=== PATIENT | male | born 1975 | race Caucasian/White ===

== ENCOUNTER 2021-01-11 02:50 | Day surgery (SDC) | payer OTHER, SELFPAY ==
[2021-01-02 13:53] VITALS: BMI 23.8
[2021-01-11 11:46] VITALS: BP 130/60; PULSE 62; RESP 18; TEMP 36.4; O2SAT 99; BMI 23.6
--- NOTE | 2021-01-11 11:59 | WPDANESEPPF ---
Anes - Initial Pre Proc Eval Procedure: Operation Date: 01/11/21 11:45 Proposed Procedures p Esophagogastroduodenoscopy - Doni Camacho MD Date/Time: 01/11/21 11:59 Surgeon: Doni Camacho MD Pre Op Diagnosis: dysphagia Patient Data Age: 45 Gender: M Height: 1.88 m Weight: 83.4 kg Last Vital Signs Temp 36.4 C 01/11/21 11:46 Pulse 62 01/11/21 11:46 Resp 18 01/11/21 11:46 BP 130/60 01/11/21 11:46 Pulse Ox 99 01/11/21 11:46 Allergies Allergy/AdvReac Type Severity Reaction Status Date / Time No Known Allergies Allergy Verified 01/11/21 11:32 Home Medications Medication Instructions Recorded Confirmed Type levothyroxine 50 mcg PO DAILY 01/02/21 01/11/21 History pantoprazole 40 mg PO BID 01/02/21 01/11/21 History Patient hx anesthesia problems: none Family hx anesthesia problems: none PMFSH Past Medical History Medical History GERD (gastroesophageal reflux disease) Hx of migraines Hypothyroid Surgical History Surgical History S/P ablation operation for arrhythmia Family History Family History Other Family history of malignant neoplasm Social History Social History Smoking status: Never smoker Alcohol intake: current Living arrangements: with family Spiritual care concerns: No Anes - Eval Final PreProcedure Day of Procedure 01/11/21 11:59 Patient weight: normal Heart: regular rate and rhythm Lungs: clear to auscultation Airway: Mallampati scale class II Neurological: alert and oriented Last oral intake: >/= 8 hours ASA classification: II Emergent: no Anesthesia type and monitoring: general GIVS and standard monitoring Informed Consent: The patient's anesthetic plan and its attendant risks and benefits were discussed with the patient/family/POA. Questions were solicited and answers provided to the satisfaction of the patient/family/POA.
--- NOTE | 2021-01-11 12:00 | P.CONGI_ITS ---
Assessment and Plan Assessment and plan (1) Heartburn: Code(s): R12 - Heartburn Status: Acute Assessment and Plan: Patient complains of heartburn for many years. Apparently this poorly responsive to pantoprazole 40mg p.o. b.i.d.. Additionally patient has some pain that does not correlate with left chest burning. Plan is to evaluate more thoroughly with an EGD. Continuing pantoprazole and anti-reflux measures appears prudent for now. Is presumed he has underlying acid reflux. (2) Dysphagia: Code(s): R13.10 - Dysphagia, unspecified Status: Acute Assessment and Plan: Patient has difficulty swallowing he states that unprocessed foods seem to pas s thoroughly through the esophagus any feels some regurgitation. Some obstruction appears to be in the mid esophagus. Plan to evaluate with an EGD. GI Consult Note Consult date/time: 01/11/21 12:00 HPI: Clarence Rehman is a 45 year old male Presents for evaluation of GE r eflux disease. No old records accompany him. Patient reports that for many years he has had heartburn with substernal burning. Initially was treated with pantoprazole 40mg p.o. once daily. Heartburn has persisted and for this reason pantoprazole increased to a b.i.d. dose since the last several months. Previously he took the medicine only intermittently. He does report that occasionally food will hang up on swallowing. He also complains of vague left chest burning. Not related to dietary intake. He denies any weight loss or bleeding. His family history is noncontributory. Presents today for EGD to assess poor response to pantoprazole 40mg p.o. b.i.d.. Review of Systems Review of Systems: All systems reviewed & are unremarkable except as noted in HPI and below PMFSH Past Medical History Medical History (Updated 01/11/21 @ 12:02 by Doni Camacho MD) GERD (gastroesophageal reflux disease) Hx of migraines Hypothyroid Surgical History Surgical History (Updated 01/11/21 @ 12:01 by Lei Cade MD) S/P ablation operation for arrhythmia Family History Family History (Updated 03/05/15 @ 15:11 by DOCTOR UNKNOWN) Other Family history of malignant neoplasm Social History Social History Smoking status: Never smoker Alcohol intake: current Living arrangements: with family Spiritual care concerns: No Meds Home Medications and Allergies Home Medications Medication Instructions Recorded Confirmed Type levothyroxine 50 mcg PO DAILY 01/02/21 01/11/21 History pantoprazole 40 mg PO BID 01/02/21 01/11/21 History Allergies Allergy/AdvReac Type Severity Reaction Status Date / Time No Known Allergies Allergy Verified 01/11/21 11:32 Vital Signs Vital Signs - 24 hr 01/11/21 11:46 Temperature 97.6 F Pulse Rate 62 Respiratory Rate 18 Blood Pressure 130/60 Pulse Oximetry 99 Exam Narrative: Physical exam reveals patient to be alert. Vital signs stable. HEENT exam is unremarkable. Patient is anicteric. Lungs are clear to auscultation and percussion. Heart is without murmur or extra sounds. Abdominal exam bowel sounds are present soft nontender with no organomegaly. Rectal exam is deferred at this time.
[2021-01-11] MEDS: LACTATED RINGERS 1,000 ML 150 ML IV CONT (12:02)
[2021-01-11] MEDS: BENZOCAINE (*SP) 60 ML SPRAY CAN (HURRICAINE) 1 SPRAY MUCOUS MEM (12:09)
[2021-01-11 12:21] VITALS: BP 103/71; PULSE 67; RESP 15; O2SAT 96
[2021-01-11 12:31] VITALS: BP 111/77; PULSE 71; RESP 18; O2SAT 98
[2021-01-11 12:41] VITALS: BP 115/78; PULSE 61; RESP 14; O2SAT 100
== END 2021-01-11 12:59 | disposition home or self-care (01) ==
PROVIDERS: PCP Internal Medicine; Visit Provider Internal Medicine Gastroenterology
PROC: 0DJ08ZZ Inspection of Upper Intestinal Tract, Via Natural or Artificial Opening Endoscopic (ICD-10-PCS; CPT 43235; principal; 2021-01-11 11:45)
DX: R13.10 Dysphagia, unspecified (principal); R12 Heartburn; K21.9 Gastro-esophageal reflux disease without esophagitis; E03.9 Hypothyroidism, unspecified
CPT/HCPCS: 43239; 87081; J2704; J7120